=== PATIENT | female | born 1965 | race Caucasian/White ===

== ENCOUNTER → 2017-08-05 | Outpatient (CLI) | payer BC ==
--- NOTE | 2017-08-06 10:41 | MM ---
Reason for exam: screening (asymptomatic). Last mammogram was performed 2 years and 5 months ago. History: Patient had first child at age 29. Took hormonal contraceptives for 13 years. Physical Findings: A clinical breast exam by your physician is recommended on an annual basis and results should be correlated with mammographic findings. MG Screening Mammo w CAD Bilateral CC and MLO view(s) were taken. Prior study comparison: February 27, 2015, bilateral MG screening mammo w CAD. January 20, 2013, bilateral digital screening mammo w/CAD. The breast tissue is heterogeneously dense. This may lower the sensitivity of mammography. No significant changes when compared with prior studies. ASSESSMENT: Benign, BI-RAD 2 RECOMMENDATION: Routine screening mammogram of both breasts in 1 year.
== END | disposition home or self-care (01) ==
LOC: RADMAMWWP 16:06
PROVIDERS: ATTEND Internal Medicine
DX: Z12.31 Encounter for screening mammogram for malignant neoplasm of breast (principal)
CPT/HCPCS: 77067

== ENCOUNTER → 2021-02-26 | Outpatient (CLI) | payer BC ==
--- NOTE | 2021-02-26 15:26 | US ---
EXAMINATION TYPE: US carotid duplex BILAT DATE OF EXAM: 02/26/2021 COMPARISON: CT Brain CLINICAL HISTORY: R09.89 CAROTID BRUIT. Left carotid bruit and cardiac murmur per patient. EXAM MEASUREMENTS: RIGHT: Peak Systolic Velocity (PSV) cm/sec ----- Right CCA: 62.7 ----- Right ICA: 125.1 ----- Right ECA: 69.4 ICA/CCA ratio: 2.0 RIGHT: End Diastole cm/sec ----- Right CCA: 23.5 ----- Right ICA: 51.3 ----- Right ECA: 15.0 LEFT: Peak Systolic Velocity (PSV) cm/sec ----- Left CCA: 91.0 ----- Left ICA: 101.2 ----- Left ECA: 46.8 ICA/CCA ratio: 1.1 LEFT: End Diastole cm/sec ----- Left CCA: 39.2 ----- Left ICA: 36.5 ----- Left ECA: 12.7 VERTEBRALS (direction of flow): Right Vertebral: Antegrade Left Vertebral: Antegrade Rhythm: Normal Grayscale images show [id number] peripheral plaque at bilateral carotid bulb level. Slight incr eased peak systolic and end diastolic velocity in the right internal carotid artery. Slight abnormal ratio noted. IMPRESSION: Moderate atherosclerotic changes bilaterally. Hemodynamically significant stenosis just over 50% is felt present on the right. Further Investigation with CTA or MRA of the neck is advised t o better evaluate. Criteria for Assigning % of Stenosis / Diameter reduction (Estimation based on the indirect measurements of the internal carotid artery velocities (ICA PSV). 1. Normal (no stenosis)=ICA PSV < 125 cm/s: ratio < 2.0: ICA EDV<40 cm/s. 2. Less than 50% stenosis=ICA PSV < 125 cm/s: ratio < 2.0: ICA EDV<40 cm/s. 3. 50 to 69% stenosis=ICA PSV of 125 to 230 cm/s: ration 2.0 ? 4.0: ICA EDV 40-100 cm/s. 4. Greater than 70% stenosis to near occlusion= ICA PSV > 230 cm/s: ratio > 4.0: ICA EDV > 100 cm/s. 5. Near occlusion= ICA PSV velocities may be low or undetectable: variable ratio and ICA EDV. 6. Total occlusion=unable to detect flow.
--- NOTE | 2021-02-27 10:14 | ECHOF ---
Referral Reason:R01.1 MEASUREMENTS -------- HEIGHT: 170.2 cm WEIGHT: 73.5 kg BP: 169/92 RVIDd: 3.0 cm (< 3.3) IVSd: 1.1 cm (0.6 - 1.1) LVIDd: 4.2 cm (3.9 - 5.3) LVPWd: 1.2 cm (0.6 - 1.1) IVSs: 1.6 cm LVIDs: 2.8 cm LVPWs: 1.6 cm LA Diam: 3.0 cm (2.7 - 3.8) LAESV Index (A-L): 24.90 ml/m Ao Diam: 2.8 cm (2.0 - 3.7) AV Cusp: 1.4 cm (1.5 - 2.6) MV EXCURSION: 14.642 mm (> 18.000) MV EF SLOPE: 59 mm/s (70 - 150) EPSS: 0.1 cm MV E Weston: 1.25 m/s MV DecT: 313 ms MV A Weston: 1.50 m/s MV E/A Ratio: 0.83 AV maxP.91 mmHg AV meanP.01 mmHg RAP: 5.00 mmHg RVSP: 39.79 mmHg FINDINGS -------- Sinus rhythm. This was a technically adequate study. The left ventricular size is normal. There is borderline concentric left ventricular hypertrophy. Overall left ventricular systolic function is normal with, an EF between 60 - 65 %. The right ventricle is normal in size. Normal LA size by volume 22+/-6 ml/m2. The right atrium is normal in size. Interatrial and interventricular septum intact. There is moderate aortic valve sclerosis. There is severe aortic stenosis present. Peak/mean grad ient across the Aortic Valve is 88.91mmHg / 55.01mmHg. Can't exclude possible Bicuspid Aov. Mild mitral annular calcification present. There is trace mitral regurgitation. Mild tricuspid regurgitation present. There is mild pulmonary hypertension. The right ventricular systolic pressure, as measured by Doppler, is 39.79mmHg. There is no pulmonic regurgitation present. The aortic root size is normal. Normal inferior vena cava with normal inspiratory collapse consistent with estimated right atrial pre ssure of 5 mmHg. There is no pericardial effusion. CONCLUSIONS -------- 1. The left ventricular size is normal. 2. There is borderline concentric left ventricular hypertrophy. 3. Overall left ventricular systolic function is normal with, an EF between 60 - 65 %. 4. There is moderate aortic valve sclerosis. 5. There is severe aortic stenosis present. 6. Peak/mean gradient across the Aortic Valve is 88.91mmHg / 55.01mmHg. 7. Can't exclude possible Bicuspid Aov. 8. Mild mitral annular calcification present. 9. There is trace mitral regurgitation. 10. Mild tricuspid regurgitation present. 11. There is mild pulmonary hypertension. 12. The right ventricular systolic pressure, as measured by Doppler, is 39.79mmHg. 13. There is no pulmonic regurgitation present. 14. There is no pericardial effusion. CUSTOMER SERVICE CLERK: Johana Ramsay RDCS
== END | disposition home or self-care (01) ==
LOC: RADECHMAIN 13:42
PROVIDERS: ATTEND Family Medicine
DX: I08.3 Combined rheumatic disorders of mitral, aortic and tricuspid valves (principal); I65.23 Occlusion and stenosis of bilateral carotid arteries; I27.20 Pulmonary hypertension, unspecified
CPT/HCPCS: 93306; 93880

== ENCOUNTER 2021-03-05 13:00 | Emergency (ER) | payer BC ==
[2021-03-05 13:12] VITALS: TEMP 98.1
--- NOTE | 2021-03-05 13:38 | XR ---
EXAMINATION TYPE: XR chest 2V DATE OF EXAM: 03/05/2021 COMPARISON: Chest x-ray and CT July 01, 2012 HISTORY: History of cardiac stenosis with dysrhythmia TECHNIQUE: Frontal and lateral views of the chest are obtained. FINDINGS: There are chronic parenchymal changes bilaterally redemonstrated without suspicious focal air space opacity, pleural effusion, or pneumothorax seen. The cardiac silhouette size is stable and within normal limits with atherosclerotic change thoracic aorta. The osseous structures are intact . IMPRESSION: Chronic changes without acute pulmonary process.
[2021-03-05 13:52] LABS: Basophils # (A) 0.1 k/uL (0-0.2); Basophils % (A) 1 %; Eosinophils # (A) 0.1 k/uL (0-0.7); Eosinophils % (A) 2 %; HCT 40.8 % (34.0-46.0); HGB 13.4 gm/dL (11.4-16.0); Lymphocytes # (A) 2.9 k/uL (1.0-4.8); Lymphocytes % (A) 41 %; MCH 29.3 pg (25.0-35.0); MCHC 32.9 g/dL (31.0-37.0); MCV 89.1 fL (80.0-100.0); Mean Platelet Volume 9.3; Monocytes # (A) 0.3 k/uL (0-1.0); Monocytes % (A) 4 %; Neutrophils # (A) 3.5 k/uL (1.3-7.7); Neutrophils % (A) 50 %; Platelet Count 242 k/uL (150-450); RBC 4.58 m/uL (3.80-5.40); RDW 12.2 % (11.5-15.5)
[2021-03-05 13:56] LABS: Albumin 4.3 g/dL (3.5-5.0); Calcium 9.7 mg/dL (8.4-10.2); Magnesium 2.1 mg/dL (1.6-2.3); Potassium 3.4 mmol/L (3.5-5.1); Prothrombin Time 11.1 sec (9.0-12.0); Total Bilirubin 0.4 mg/dL (0.2-1.3); Total Protein 7.7 g/dL (6.3-8.2)
[2021-03-05 13:57] LABS: Partial Thromboplastin Time 23.5 sec (22.0-30.0)
--- NOTE | 2021-03-05 15:18 | ED ---
General Adult HPI - General Chief complaint: Arrhythmia/Palpitations Stated complaint: High HR Time Seen by Provider: 03/05/21 14:31 Source: patient, RN notes reviewed Mode of arrival: wheelchair Limitations: no limitations - History of Present Illness Initial comments: 55-year-old female presents to the emergency department for evaluation. States she has a sensation in her upper chest that she has difficulty describing but is causing her concern. States that has occurred 4 or 5 times and lasts for less than a minute. Has had some fluttering sensation in her chest as well. Patient states she was recently diagnosed with aortic stenosis and is scheduled to see the optical element coater tomorrow. Patient denies headache, dizziness, lightheadedness, chest pain, shortness of breath, difficulty breathing, abdominal pain, nausea, vomiting, or dysuria - Related Data Home Medications Medication Instructions Recorded Confirmed Aspirin 81 mg PO DAILY 03/05/21 03/05/21 Enalapril [Vasotec] 5 mg PO DAILY 03/05/21 03/05/21 Potassium Chloride [Potassium 10 meq PO DAILY 03/05/21 03/05/21 Chloride ER] hydroCHLOROthiazide 25 mg PO DAILY 03/05/21 03/05/21 Allergies Allergy/AdvReac Type Severity Reaction Status Date / Time No Known Allergies Allergy Verified 03/05/21 16:29 Review of Systems ROS Statement: Those systems with pertinent positive or pertinent negative responses have been documented in the HPI. ROS Other: All systems not noted in ROS Statement are negative. Past Medical History Past Medical History: Hypertension Additional Past Medical History / Comment(s): recently diagnosed with aortic stenosis, History of Any Multi-Drug Resistant Organisms: None Reported Past Surgical History: Section Past Psychological History: No Psychological Hx Reported Smoking Status: Former smoker Past Alcohol Use History: None Reported Past Drug Use History: None Reported General Exam Limitations: no limitations (This is a well-developed, well-nourished female in no acute distress. Initial temperature 98.1, pulse 104, respirations 20, blood pressure 178/82, and pulse ox 98% on room air.) General appearance: alert, in no apparent distress Eye exam: Present: normal appearance, PERRL, EOMI. Absent: scleral icterus, conjunctival injection, periorbital swelling ENT exam: Present: normal exam, normal oropharynx, mucous membranes moist Neck exam: Present: normal inspection Respiratory exam: Present: normal lung sounds bilaterally. Absent: respiratory distress, wheezes, rales, rhonchi, stridor Cardiovascular Exam: Present: regular rate, normal rhythm, normal heart sounds, systolic murmur. Absent: diastolic murmur, rubs, gallop, clicks GI/Abdominal exam: Present: soft, normal bowel sounds. Absent: distended, tenderness, guarding, rebound, rigid Neurological exam: Present: alert, oriented X3, CN II-XII intact Psychiatric exam: Present: normal affect, normal mood Skin exam: Present: warm, dry, intact, normal color. Absent: rash Course Vital Signs 03/05/21 03/05/21 03/05/21 13:09 14:36 20:29 Temperature 98.1 F Pulse Rate 104 H 89 Pulse Rate [ 91 Cigar Head Stringer ] Respiratory 20 18 Rate Blood Pressure 178/82 128/70 O2 Sat by Pulse 98 98 Oximetry Medical Decision Making - Medical Decision Making 55-year-old female presents to the emergency department for evaluation in a nonspecific sensation in the upper portion of her chest. Patient states she has had 4-5 episodes of this difficult to describe sensation that is somewhat simila r to palpitations, though not fluttering. Episodes are not accompanied by any additional symptoms such as dizziness or lightheadedness, diaphoresis, or nausea vomiting. Patient is not experiencing any chest pain or tightness. Upon exam, patient is well-appearing with a supportive spouse at bedside. States she does feel anxious about her new diagnosis. pvc monitor shows normal sinus rhythm . Blood pressure significantly improved with rest. EKG shows normal sinus rhythm with evidence of left ventricular hypertrophy. Patient states she is scheduled to see the optical element coater tomorrow. Laboratory studies were obtained. Initial troponin was less than 0.012, repeat 0.015. Chest x-ray shows no acute process. Patient's care was discussed with my attending Dr. Newman. Findings were also discussed with the patient and spouse. Presented with the option of pursuing admission for continued cardiac monitoring, or discharge home with strict return parameters. Patient preferred discharge home as she is scheduled to see the optical element coater tomorrow. Return parameters were discussed in detail. Patient verbalizes understanding and agrees with this plan. - Lab Data Result diagrams: 03/05/21 13:21 03/05/21 13:21 Lab Results 03/05/21 03/05/2103/05/21 Range/Units 13:21 13:21 13:21 WBC 7.0 (3.8-10.6) k/uL RBC 4.58 (3.80-5.40) m/uL Hgb 13.4 (11.4-16.0) gm/dL Hct 40.8 (34.0-46.0) % MCV 89.1 (80.0-100.0) fL MCH 29.3 (25.0-35.0) pg MCHC 32.9 (31.0-37.0) g/dL RDW 12.2 (11.5-15.5) % Plt Count 242 (150-450) k/uL MPV 9.3 Neutrophils % 50 % Lymphocytes % 41 % Monocytes % 4 % Eosinophils % 2 % Basophils % 1 % Neutrophils # 3.5 (1.3-7.7) k/uL Lymphocytes # 2.9 (1.0-4.8) k/uL Monocytes # 0.3 (0-1.0) k/uL Eosinophils # 0.1 (0-0.7) k/uL Basophils # 0.1 (0-0.2) k/uL PT 11.1 (9.0-12.0) sec INR 1.0 (<1.2) APTT 23.5 (22.0-30.0) sec Sodium 136 L (137-145) mmol/L Potassium 3.4 L (3.5-5.1) mmol/L Chloride 98 (98-107) mmol/L Carbon Dioxide 27 (22-30) mmol/L Anion Gap 11 mmol/L BUN 16 (7-17) mg/dL Creatinine 0.86 (0.52-1.04) mg/dL Est GFR (CKD-EPI)AfAm 87 (>60 ml/min/1.73 sqM) Est GFR (CKD-EPI)NonAf 76 (>60 ml/min/1.73 sqM) Glucose 175 H (74-99) mg/dL Calcium 9.7 (8.4-10.2) mg/dL Magnesium 2.1 (1.6-2.3) mg/dL Total Bilirubin 0.4 (0.2-1.3) mg/dL AST 21 (14-36) U/L ALT 24 (4-34) U/L Alkaline Phosphatase 84 (38-126) U/L Troponin I (0.000-0.034) ng/mL Total Protein 7.7 (6.3-8.2) g/dL Albumin 4.3 (3.5-5.0) g/dL 03/05/21 03/05/21 Range/Units 13:21 17:58 WBC (3.8-10.6) k/uL RBC (3.80-5.40) m/uL Hgb (11.4-16.0) gm/dL Hct (34.0-46.0) % MCV (80.0-100.0) fL MCH (25.0-35.0) pg MCHC (31.0-37.0) g/dL RDW (11.5-15.5) % Plt Count (150-450) k/uL MPV Neutrophils % % Lymphocytes % % Monocytes % % Eosinophils % % Basophils % % Neutrophils # (1.3-7.7) k/uL Lymphocytes # (1.0-4.8) k/uL Monocytes # (0-1.0) k/uL Eosinophils # (0-0.7) k/uL Basophils # (0-0.2) k/uL PT (9.0-12.0) sec INR (<1.2) APTT (22.0-30.0) sec Sodium (137-145) mmol/L Potassium (3.5-5.1) mmol/L Chloride (98-107) mmol/L Carbon Dioxide (22-30) mmol/L Anion Gap mmol/L BUN (7-17) mg/dL Creatinine (0.52-1.04) mg/dL Est GFR (CKD-EPI)AfAm (>60 ml/min/1.73 sqM) Est GFR (CKD-EPI)NonAf (>60 ml/min/1.73 sqM) Glucose (74-99) mg/dL Calcium (8.4-10.2) mg/dL Magnesium (1.6-2.3) mg/dL Total Bilirubin (0.2-1.3) mg/dL AST (14-36) U/L ALT (4-34) U/L Alkaline Phosphatase (38-126) U/L Troponin I <0.012 0.015 (0.000-0.034) ng/mL Total Protein (6.3-8.2) g/dL Albumin (3.5-5.0) g/dL - EKG Data EKG shows normal: sinus rhythm Rate: normal EKG Comments: EKG was obtained at 1313 and shows normal sinus rhythm. Ventricular rate 94, OH interval 120, QRS duration 90, QT/QTC 362/452. - Radiology Data Radiology results: report reviewed, image reviewed Two-view chest x-ray was obtained. Report was reviewed in its entirety. Impression per Dr. Johnson shows chronic changes without acute pulmonary process. Disposition Clinical Impression: Palpitations Disposition: HOME SELF-CARE Condition: Stable Instructions (If sedation given, give patient instructions): Heart Palpitations (ED) Additional Instructions: Follow-up with her optical element coater as scheduled tomorrow. If you develop any chest pain, tightness, discomfort, or additional concerning symptoms, please return to the emergency department. Is patient prescribed a controlled substance at d/c from ED?: No Referrals: Theresa Stokes MD [Primary Care Provider] - 1-2 days Time of Disposition: 20:07
[2021-03-05 20:29] VITALS: BP 128/70; PULSE 89; RESP 18
== END 2021-03-05 20:29 | disposition home or self-care (01) ==
LOC: EC 13:00
DX: R00.2 Palpitations (principal); I10 Essential (primary) hypertension; Z87.891 Personal history of nicotine dependence; Z79.82 Long term (current) use of aspirin; Z79.899 Other long term (current) drug therapy
CPT/HCPCS: 36415; 71046; 80053; 83735; 84484; 85025; 85610; 85730; 93005; 99285

== ENCOUNTER → 2021-03-20 | Outpatient (CLI) | payer BC ==
--- NOTE | 2021-03-20 20:37 | CT ---
EXAMINATION TYPE: CT angio neck DATE OF EXAM: 03/20/2021 HISTORY: Occlusion and stenosis, abnormal ultrasound. COMPARISON: Carotid Doppler duplex 02/26/2021 CT DLP: 292.8 mGycm. Automated Exposure Control for Dose Reduction was Utilized. TECHNIQUE: CTA scan of the neck is performed with IV Contrast, patient injected with 65ml mL of Isov ue 370, axial images are obtained, coronal and sagittal reformatted images are reviewed. 3D reconstru cted images are created on an independent workstation and reviewed. FINDINGS: Carotid/Vascular Structures: Only mild atheromatous changes are present at the carotid bifurcations. There is no evidence hemodynamic significant stenosis. There is 4 super aortic branch vessels. The innominate, left and right vertebral arteries, left and r ight common carotid arteries, left and right subclavian arteries are patent. Right vertebral artery i s dominant. Internal and external carotid arteries are patent. Other: Lung apices are normal. No evident adenopathy. IMPRESSION: No hemodynamic significant stenosis of the proximal internal carotid arteries is present . NASCET criteria was used in interpretation of this exam?
== END | disposition home or self-care (01) ==
LOC: RADCTMAIN 16:24
PROVIDERS: ATTEND Internal Medicine Interventional Cardiology
DX: I65.29 Occlusion and stenosis of unspecified carotid artery (principal)
CPT/HCPCS: 70498; Q9967

== ENCOUNTER 2021-04-25 07:58 | Day surgery (SDC) | payer BC ==
[2021-04-24 09:39] VITALS: BMI 27.3
[2021-04-25] MEDS ORDERED: SODIUM CHLORIDE 0.9% 500 ML 500 ML IV ONE (08:13)
[2021-04-25 08:22] VITALS: TEMP 97.8
[2021-04-25] MEDS ORDERED: fentaNYL (PF) 50 MCG/ML 2 ML AMP ONE (08:42)
[2021-04-25] MEDS ORDERED: BENZOCAINE SPRAY 1 CAN TOPICAL ONE (08:53)
[2021-04-25] MEDS ORDERED: MIDAZOLAM 2 MG/2 ML VIAL IV ONE (09:11)
[2021-04-25] MEDS: MIDAZOLAM 2 MG/2 ML VIAL IV ONE ×2 (09:11→09:14)
[2021-04-25] MEDS ORDERED: fentaNYL (PF) 50 MCG/ML 2 ML AMP IV ONE (09:11)
--- NOTE | 2021-04-25 10:07 | P.PCN ---
Date of Procedure: 04/25/21 Operative Findings: TRANSESOPHAGEAL ECHOCARDIOGRAM METALIZING MACHINE OPERATOR: NATHALIE CORNELL MD, RPVI INDICATION: Aortic stenosis SEDATION: Conscious sedation 12 minuteswith sedation length of COMPLICATION: None PROCEDURE DESCRIPTION: After obtaining an informed consent, the patient was brought to transesophageal echocardiogram room. Pulse oximetry and heart monitors were attached to the patient. The patient throat was sprayed using lidocaine. The patient was turned into left lateral position. After that a bite guard was placed. After an appropriate conscious sedation was initiated, the transesophageal echocardiogram was advanced through a bite guard into the mid esophagus. A 2-D echocardiogram images, color Doppler images, continuous wave images, pulse-wave images, of various cardiac structure were performed. After that the transesophageal echocardiogram probe was advanced into the stomach and fixed to obtain transgastric view was. The probe was brought into the mid esophagus. Inter-atrial septum was interrogated using 2D images, color Doppler images, and then contrast study. After that transesophageal echocardiogram was withdrawn out and upon withdrawing the descending thoracic aorta all the way up to the arch was evaluated. FINDING: The left ventricular dimension and systolic function appeared to be within normal limits. The ejection fraction appears to be in the range of 50-55%. The right ventricle appeared to be of normal size and function as well. The left atrium and right atrium appeared to be within normal limits. The left atrial appendage appeared to be within normal limits without any evidence of thrombus. The interatrial septum appeared to be intact. The aortic valve appeared to be bicuspid valve with fusion of the right and left coronary cusps and evidence off severe aortic stenosis with a mean gradient of 38 mmHg and peak gradient of 82 mmHg and velocity of 4.3 m/s. There was mild aortic insufficiency identified. The mitral valve seems to be mildly thickened with mild to moderate regurgitation. The aortic root appeared to also dilated. Normal tricuspid valve and pulmonic valve seen. CONCLUSION: 1. normal left ventricular dimension and systolic function 2. normal right ventricular dimension and systolic function 3. normal left atrial appendage and intact interatrial septum 4. bicuspid aortic valve with fusion of the right and left coronary cusps and evidence of severe aortic stenosis and mild aortic insufficiency 5. dilated aortic root 6. mild to moderate mitral regurgitation
[2021-04-25 12:04] VITALS: RESP 16
[2021-04-25 12:06] VITALS: BP 132/82; PULSE 68
== END 2021-04-25 10:30 | disposition home or self-care (01) ==
LOC: CATHCVL 07:58
PROVIDERS: ATTEND Internal Medicine Interventional Cardiology
DX: I35.0 Nonrheumatic aortic (valve) stenosis (principal); Z20.822 Contact with and (suspected) exposure to COVID-19
CPT/HCPCS: 93312; 93320; 93325; 87635; J2250; J3010

== ENCOUNTER 2022-04-03 10:22 | Emergency (ER) | payer BC ==
[2022-04-03 11:08] LABS: Basophils # (A) 0.1 k/uL (0-0.2); Basophils % (A) 1 %; Eosinophils # (A) 0.1 k/uL (0-0.7); Eosinophils % (A) 1 %; HCT 42.8 % (34.0-46.0); HGB 14.1 gm/dL (11.4-16.0); Lymphocytes # (A) 1.6 k/uL (1.0-4.8); Lymphocytes % (A) 21 %; MCH 28.8 pg (25.0-35.0); MCV 87.2 fL (80.0-100.0); Mean Platelet Volume 9.9; Monocytes # (A) 0.3 k/uL (0-1.0); Monocytes % (A) 4 %; Neutrophils # (A) 5.1 k/uL (1.3-7.7); Neutrophils % (A) 71 %; Platelet Count 230 k/uL (150-450); RBC 4.91 m/uL (3.80-5.40); RDW 12.4 % (11.5-15.5); WBC 7.3 k/uL (3.8-10.6)
[2022-04-03 11:20] VITALS: RESP 16
[2022-04-03 11:20] LABS: Prothrombin Time 10.5 sec (9.0-12.0)
[2022-04-03] MEDS ORDERED: LORazepam 2 MG/ML INJ IV STA (11:24)
--- NOTE | 2022-04-03 11:26 | XR ---
EXAMINATION TYPE: XR chest 2V DATE OF EXAM: 04/03/2022 11:09 AM COMPARISON: Chest radiographs from 03/05/2021. TECHNIQUE: XR chest 2V Frontal and lateral views of the chest. CLINICAL INDICATION:Female, 56 years old with history of Chest Pain; FINDINGS: Lungs/Pleura: There is no evidence of pleural effusion, focal consolidation, or pneumothorax. Chroni c parenchymal changes bilaterally. Pulmonary vascularity: Unremarkable. Heart/mediastinum: Cardiomediastinal silhouette is unremarkable. Atherosclerotic calcifications are seen in the aorta. Musculoskeletal: No acute osseous pathology. IMPRESSION: Chronic changes without acute process.
--- NOTE | 2022-04-03 11:27 | ED ---
General Adult HPI - General Chief complaint: Chest Pain Stated complaint: chest tightness Time Seen by Provider: 04/03/22 11:05 Source: patient, RN notes reviewed, old records reviewed Mode of arrival: ambulatory Limitations: no limitations - History of Present Illness Initial comments: This is a 56-year-old female presents emergency department with past medical history significant for a bicuspid valve that needs replacing. Patient states today at work she was just sitting there and she felt a weird sensation in her chest like her heart stopped and then she almost passed out. Patient states currently she feels fine. Patient denies any actual chest pain. Patient denies any difficulty breathing shortness of breath. Patient again denies any chest pain to me she states is a weird sensation in her chest like is going to stop but there is actually no pain. Patient states currently she has no symptoms. Patient denies any recent fever chills or cough. Patient states she might be a little dehydrated because lately spell constipated. Patient denies any headache patient denies any numbness or focal weakness. - Related Data Home Medications Medication Instructions Recorded Confirmed Enalapril [Vasotec] 5 mg PO DAILY 03/05/21 04/03/22 Cholecalciferol [Vitamin D3 (25 50 mcg PO DAILY 04/03/22 04/03/22 Mcg = 1000 Iu)] Triamterene/Hydrochlorothiazid 1 tab PO DAILY 04/03/22 04/03/22 [Triamterene-Hctz 37.5-25 mg Tb] Allergies Allergy/AdvReac Type Severity Reaction Status Date / Time No Known Allergies Allergy Verified 04/03/22 12:52 Review of Systems ROS Statement: Those systems with pertinent positive or pertinent negative responses have been documented in the HPI. ROS Other: All systems not noted in ROS Statement are negative. Past Medical History Past Medical History: Hypertension Additional Past Medical History / Comment(s): recently diagnosed with aortic stenosis," OCCASSIONAL FLUTTER"" History of Any Multi-Drug Resistant Organisms: None Reported Past Surgical History: Section Additional Past Surgical History / Comment(s): IVF- WITH ANESTHESIA , COLONOSCOPY Past Anesthesia/Blood Transfusion Reactions: Previous Problems w/ Anesthesia Additional Past Anesthesia/Blood Transfusion Reaction / Comment(s): TOOK LONGER FOR FATHER TO WAKE UP FROM ANESTHESIA Past Psychological History: Anxiety Smoking Status: Former smoker Past Alcohol Use History: Occasional Past Drug Use History: Marijuana - Past Family History Mother History Unknown: Yes General Exam - General Exam Comments Initial Comments: GENERAL: Patient is well-developed and well-nourished. Patient is nontoxic and well- hydrated and is in mild distress. ENT: Neck is soft and supple. No significant lymphadenopathy is noted. Oropharynx is clear. Moist mucous membranes. Neck has full range of motion without eliciting any pain. EYES: The sclera were anicteric and conjunctiva were pink and moist. Extraocular movements were intact and pupils were equal round and reactive to light. Eyelids were unremarkable. PULMONARY: Unlabored respirations. Good breath sounds bilaterally. No audible rales rhonchi or wheezing was noted. CARDIOVASCULAR: Patient is tachycardic at about 100 beats a minute. Patient has a significant systolic murmur 3 out of 6 ABDOMEN: Soft and nontender with normal bowel sounds. SKIN: Skin is clear with no lesions or rashes and otherwise unremarkable. NEUROLOGIC: Patient is alert and oriented x3. Cranial nerves II through XII are grossly intact. Motor and sensory are also intact. Normal speech, volume and content. Symmetrical smile. MUSCULOSKELETAL: Normal extremities with adequate strength and full range of motion. No lower extremity swelling or edema. No calf tenderness. LYMPHATICS: No significant lymphadenopathy is noted PSYCHIATRIC: Normal psychiatric evaluation. Limitations: no limitations Course Vital Signs 04/03/22 04/03/22 04/03/22 10:30 11:18 12:00 Temperature 98 F Pulse Rate 96 87 80 Respiratory 18 16 16 Rate Blood Pressure 129/80 161/96 131/82 O2 Sat by Pulse 100 97 98 Oximetry 04/03/22 04/03/22 13:00 16:19 Temperature 96.8 F L Pulse Rate 78 85 Respiratory 16 Rate Blood Pressure 126/81 135/81 O2 Sat by Pulse 98 98 Oximetry Medical Decision Making - Medical Decision Making EKG shows sinus rhythm at 83 bpm NJ interval 140 QRS is 86 QT interval 352 QTC is 392. Patient's EKG shows some slight ST segment depression V4 through V6 and inferior leads. Was pt. sent in by a medical professional or institution (, PA, PILOT PLANT OPERATOR, urgent care, hospital, or custodial...) When possible be specific @ -No Did you speak to anyone other than the patient for history (EMS, parent, family, police, friend...)? What history was obtained from this source @ -No Did you review nursing and triage notes (agree or disagree)? Why? @ -I reviewed and agree with nursing and triage notes Were old charts reviewed (outside hosp., previous admission, EMS record, old EKG, old radiological studies, urgent care reports/EKG's, custodial records)? Report findings @ -No old charts were reviewed Differential Diagnosis (chest pain, altered mental status, abdominal pain women, abdominal pain men, vaginal bleeding, weakness, fever, dyspnea, syncope, headache, dizziness, GI bleed, back pain, seizure, CVA, palpatations, mental health)? @ -Differential Syncope: Valvular disease, hypertrophic cardiomyopathy, pulmonary embolism, tamponade, tachycardia, bradycardia, KS, hypovolemia, hemorrhage, dissection, anemia, intracranial hemorrhage, seizure, hypoglycemia, carbon monoxide poisoning, this is not meant to be an all-inclusive list. EKG interpreted by me (3pts min.). @ -As above X-rays interpreted by me (1pt min.). @ -Chest x-ray is interpreted by me. No acute abnormality. CT interpreted by me (1pt min.). @ -CT of the chest was interpreted by me. First computed tomography scan she had too much motion artifact so it was repeated and it showed no acute pulmonary was no infiltrates and no aortic abnormalities. U/S interpreted by me (1pt. min.). @ -None done What testing was considered but not performed or refused? (CT, X-rays, U/S, labs)? Why? @ -None What meds were considered but not given or refused? Why? @ -None Did you discuss the management of the patient with other professionals (professionals i.e. , PA, PILOT PLANT OPERATOR, lab, RT, psych nurse, clinical social worker, quality cloth tester, teacher, special forces warrant officer, case maker)? Give summary @ -I discussed the management of this patient with staff he agreed that the patient did not have any signs of aortic dissection or pulmonary embolism the p atient could go home and follow-up with the cardiovascular surgeon for the bicuspid aortic valve that has some stenosis Was smoking cessation discussed for >3mins.? @ -No Was critical care preformed (if so, how long)? @ -No Were there social determinants of health that impacted care today? How? (Homelessness, low income, unemployed, alcoholism, drug addiction, transportation, low edu. Level, literacy, decrease access to med. care, usp, rehab)? @ -No Was there de-escalation of care discussed even if they declined (Discuss DNR or withdrawal of care, Hospice)? DNR status @ -No What co-morbidities impacted this encounter? (DM, HTN, Smoking, COPD, CAD, Cancer, CVA, ARF, Chemo, Hep., AIDS, mental health diagnosis, sleep apnea, morbid obesity)? @ -aortic stenosis and a bicuspid aortic valve this is potentially causing poor outflow heart causing her syncopal episodes which is why she is here today Was patient admitted / discharged? Hospital course, mention meds given and route, prescriptions, significant lab abnormalities, going to OR and other pertinent info. @ -Patient will be discharged home to follow-up with cardiovascular surgeon who sure he has appointment with. Patient is going to return hospital to us any worsening symptoms such as difficulty breathing chest pain or more syncopal episodes. Patient will keep hydrated as well Undiagnosed new problem with uncertain prognosis? @ -No Drug Therapy requiring intensive monitoring for toxicity (Heparin, Nitro, Insulin, Cardizem)? @ -No Were any procedures done? @ -No Diagnosis/symptom? @ -Near syncope Acute, or Chronic, or Acute on Chronic? @ -Acute on chronic Uncomplicated (without systemic symptoms) or Complicated (systemic symptoms)? @ -Complicated Side effects of treatment? @ -No Exacerbation, Progression, or Severe Exacerbation? @ -Exacerbation Poses a threat to life or bodily function? How? (Chest pain, [place], KS, pneumonia, PE, COPD, DKA, ARF, appy, cholecystitis, CVA, Diverticulitis, Homicidal, Suicidal, threat to staff... and all critical care pts) @ -No Diagnosis/symptom? @ -Stenosis of the aortic valve Acute, or Chronic, or Acute on Chronic? @ -Acute Uncomplicated (without systemic symptoms) or Complicated (systemic symptoms)? @ -Complicated Side effects of treatment? @ -none Exacerbation, Progression, or Severe Exacerbation] @ -no Poses a threat to life or bodily function? @ -no - Lab Data Result diagrams: 04/03/22 10:38 04/03/22 10:38 Lab Results 04/03/22 04/03/22 04/03/22 Range/Units 10:38 10:38 10:38 WBC 7.3 (3.8-10.6) k/uL RBC 4.91 (3.80-5.40) m/uL Hgb 14.1 (11.4-16.0) gm/dL Hct 42.8 (34.0-46.0) % MCV 87.2 (80.0-100.0) fL MCH 28.8 (25.0-35.0) pg MCHC 33.0 (31.0-37.0) g/dL RDW 12.4 (11.5-15.5) % Plt Count 230 (150-450) k/uL MPV 9.9 Neutrophils % 71 % Lymphocytes % 21 % Monocytes % 4 % Eosinophils % 1 % Basophils % 1 % Neutrophils # 5.1 (1.3-7.7) k/uL Lymphocytes # 1.6 (1.0-4.8) k/uL Monocytes # 0.3 (0-1.0) k/uL Eosinophils # 0.1 (0-0.7) k/uL Basophils # 0.1 (0-0.2) k/uL PT 10.5 (9.0-12.0) sec INR 1.0 (<1.2) APTT 24.0 (22.0-30.0) sec D-Dimer (<0.60) mg/L FEU Sodium 140 (137-145) mmol/L Potassium 3.5 (3.5-5.1) mmol/L Chloride 103 (98-107) mmol/L Carbon Dioxide 26 (22-30) mmol/L Anion Gap 11 mmol/L BUN 15 (7-17) mg/dL Creatinine 0.74 (0.52-1.04) mg/dL Est GFR (CKD-EPI)AfAm >90 (>60 ml/min/1.73 sqM) Est GFR (CKD-EPI)NonAf >90 (>60 ml/min/1.73 sqM) Glucose 125 H (74-99) mg/dL Calcium 9.9 (8.4-10.2) mg/dL Magnesium 2.0 (1.6-2.3) mg/dL Total Bilirubin 0.6 (0.2-1.3) mg/dL AST 32 (14-36) U/L ALT 44 H (4-34) U/L Alkaline Phosphatase 89 (38-126) U/L Troponin I (0.000-0.034) ng/mL Total Protein 8.1 (6.3-8.2) g/dL Albumin 4.7 (3.5-5.0) g/dL 04/03/22 04/03/22 Range/Units 10:38 10:38 WBC (3.8-10.6) k/uL RBC (3.80-5.40) m/uL Hgb (11.4-16.0) gm/dL Hct (34.0-46.0) % MCV (80.0-100.0) fL MCH (25.0-35.0) pg MCHC (31.0-37.0) g/dL RDW (11.5-15.5) % Plt Count (150-450) k/uL MPV Neutrophils % % Lymphocytes % % Monocytes % % Eosinophils % % Basophils % % Neutrophils # (1.3-7.7) k/uL Lymphocytes # (1.0-4.8) k/uL Monocytes # (0-1.0) k/uL Eosinophils # (0-0.7) k/uL Basophils # (0-0.2) k/uL PT (9.0-12.0) sec INR (<1.2) APTT (22.0-30.0) sec D-Dimer 5.33 H (<0.60) mg/L FEU Sodium (137-145) mmol/L Potassium (3.5-5.1) mmol/L Chloride (98-107) mmol/L Carbon Dioxide (22-30) mmol/L Anion Gap mmol/L BUN (7-17) mg/dL Creatinine (0.52-1.04) mg/dL Est GFR (CKD-EPI)AfAm (>60 ml/min/1.73 sqM) Est GFR (CKD-EPI)NonAf (>60 ml/min/1.73 sqM) Glucose (74-99) mg/dL Calcium (8.4-10.2) mg/dL Magnesium (1.6-2.3) mg/dL Total Bilirubin (0.2-1.3) mg/dL AST (14-36) U/L ALT (4-34) U/L Alkaline Phosphatase (38-126) U/L Troponin I <0.012 (0.000-0.034) ng/mL Total Protein (6.3-8.2) g/dL Albumin (3.5-5.0) g/dL Disposition Clinical Impression: Near syncope, Aortic valve stenosis Disposition: HOME SELF-CARE Condition: Good Instructions (If sedation given, give patient instructions): Syncope (ED) Additional Instructions: Patient should follow-up with cardiothoracic surgeon. Patient should return to emergency department chest pain difficulty breathing or syncopal episode Is patient prescribed a controlled substance at d/c from ED?: No Referrals: Amanda Calzada MD [Primary Care Provider] - 1-2 days Time of Disposition: 15:00
[2022-04-03 11:29] LABS: ALT 44 U/L (4-34); AST 32 U/L (14-36); African American GFR (CKD) >90 (>60 ml/min/1.73 sqM); Albumin 4.7 g/dL (3.5-5.0); Alkaline Phosphatase 89 U/L (38-126); Anion Gap 11 mmol/L; Blood Urea Nitrogen 15 mg/dL (7-17); Calcium 9.9 mg/dL (8.4-10.2); Carbon Dioxide 26 mmol/L (22-30); Chloride 103 mmol/L (98-107); Glucose 125 mg/dL (74-99); Non-African American GFR(CKD) >90 (>60 ml/min/1.73 sqM); Potassium 3.5 mmol/L (3.5-5.1); Sodium 140 mmol/L (137-145); Total Bilirubin 0.6 mg/dL (0.2-1.3); Total Protein 8.1 g/dL (6.3-8.2)
[2022-04-03] MEDS ORDERED: SODIUM CHLORIDE 0.9% 1,000 ML IV ONE ×2 (11:37→14:05)
--- NOTE | 2022-04-03 13:32 | CT ---
EXAMINATION TYPE: CT chest angio for PE DATE OF EXAM: 04/03/2022 COMPARISON: Radiograph same day, also, CTA 03/20/2021 HISTORY: 56-year-old female shortness of breath and elevated d-dimer TECHNIQUE: Contiguous axial scanning of the chest performed with IV Contrast, patient injected with 6 0 mL of Isovue 370. Coronal/sagittal MIP reconstructions performed. CT DLP: 308.7 mGycm Automated exposure control for dose reduction was used. FINDINGS: Heart normal size without pericardial effusion. No reflux of contrast into the hepatic veins. Prominent aortic valvular calcifications are present. There is borderline ectasia of the ascending ao rta 3.5 cm there is mild atherosclerotic arch calcifications. Aberrant direct takeoff of the left luis miguel tebral artery directly from the aortic arch. Small right hilar lymph nodes measuring up to 8 mm. No thoracic lymphadenopathy by CT size criteria. Satisfactory opacification the pulmonary arterial system. However, there is breathing motion artifact limiting evaluation. No large central or lobar branch pulmonary embolus. Unable to exclude filling d efects within segmental and subsegmental branches of the basilar left lower lobe, for example, axial image 96 and 109. There is mild diffuse bronchial wall thickening. Mild biapical pleural parenchymal scarring with mild scattered paraseptal emphysema. There is some strandy atelectasis at the basilar medial right middle lobe and also inferior lingula. No consolidation or pleural effusion. There is a small hernia. Mild left-sided colonic diverticulosis. Bones: Mild degenerative disc disease midthoracic spine. Nonspecific sclerotic focus right posterior T2 vertebral body. This is unchanged from 03/20/2021 suggesting a benign etiology, likely bone islan d. Small cervical ribs incidentally noted. IMPRESSION: 1. BREATHING MOTION ARTIFACT LIMITING THE EVALUATION. EXAM EQUIVOCAL FOR A COUPLE SEGMENTAL/SUBSEGMEN MARGARET BRANCH EMBOLI TO THE BASILAR LEFT LOWER LOBE (AXIAL IMAGE 96 AND 109). FINDINGS MAY EASILY BE DUE TO MOTION ARTIFACT. DEPENDING ON CLINICAL SUSPICION, CONSIDER EITHER TREATING VERSUS RE-BOLUSING. NO LARGE CENTRAL OR LOBAR BRANCH EMBOLUS IS SEEN. 2. COPD WITH MILD EMPHYSEMA. NO ACUTE PULMONARY PROCESS SEEN. 3. SMALL HIATAL HERNIA.
--- NOTE | 2022-04-03 14:37 | CT ---
EXAMINATION TYPE: CT angio chest CT DLP: 282.1 mGycm, Automated exposure control for dose reduction was used. DATE OF EXAM: 04/03/2022 2:21 PM COMPARISON: CTA chest of the same date. CLINICAL INDICATION:Female, 56 years old with history of elevate d-dimer; pe TECHNIQUE/CONTRAST: CTA scan of the thorax is performed with IV Contrast, patient injected with 60 mL of Isovue 370, pulm onary embolism protocol. MIP images are created and reviewed. FINDINGS: Pulmonary Artery: There is some streak artifact involving the left lower lobe microvascular. There is no definitive evidence for a filling defect within the pulmonary vasculature to suggest acute pulmon anh embolism. The pulmonary artery is of normal size. Lungs/Pleura: No pneumothorax or pleural effusion. Mild biapical pleural parenchymal scarring with mi ld scattered paraseptal emphysematous changes. Stranding atelectasis at the bases and medial right mi ddle lobe and also inferior lingula. No consolidation. Airway: Large airways are patent. Heart: Heart is within normal limits for size.. No pericardial effusion. Prominent aortic valvular ca lcifications. Aberrant direct takeoff of the left vertebral artery from the aortic arch. Mild vascula r calcification of the aorta. Vasculature: No evidence of aortic aneurysm. Mediastinum: No gross evidence of adenopathy. Musculoskeletal: No acute osseous abnormalities. Mild degenerative disc disease of the midthoracic sp ine. Nonspecific sclerotic focus in the right posterior T8 to vertebral body which is unchanged sugge sting benign etiology like a bone island. Small cervical ribs incidentally noted. Soft Tissues: Unremarkable. Lower neck: No significant findings. Upper Abdomen: Small hiatal hernia. Mild left-sided colonic diverticulosis. IMPRESSION: 1. No definitive evidence of pulmonary embolism. 2. COPD with mild emphysema.
[2022-04-03 16:22] VITALS: BP 135/81; PULSE 85; TEMP 96.8
== END 2022-04-03 16:24 | disposition home or self-care (01) ==
LOC: EC 10:22
DX: R55 Syncope and collapse (principal); I35.0 Nonrheumatic aortic (valve) stenosis; I10 Essential (primary) hypertension; F41.9 Anxiety disorder, unspecified; Z87.891 Personal history of nicotine dependence; F12.90 Cannabis use, unspecified, uncomplicated; Z79.899 Other long term (current) drug therapy
CPT/HCPCS: 36415; 93005; 85379; 80053; 83735; 84484; 85025; 85610; 85730; 71046; 71275; 99285; 96360; 96361 ×3; Q9967

== ENCOUNTER → 2023-04-24 | Outpatient (CLI) | payer BC ==
--- NOTE | 2023-04-24 16:17 | MM ---
Reason for Exam: Screening (asymptomatic). Last mammogram was performed 5 year(s) and 8 month(s) ago. Patient History: Menarche at age 11. First Full-Term at age 29. Late child-bearing (after 30). Postmenopausal. Patient has history of breast feeding. Patient used Hormonal Contraceptives for 13 years. Risk Values: Regine 5 year model risk: 1.9%. NCI Lifetime model risk: 10.2%. Prior Study Comparison: 12/17/2007 Bilateral Screening Mammogram, [facility]. 01/20/2013 Bilateral Screening Mammogram, [facility]. 02/27/2015 Bilateral Screening Mammogram, [facility]. 08/05/2017 Bilateral Screening Mammogram, [facility]. Tissue Density: The breast tissue is almost entirely fat. Findings: Analyzed By CAD. There is no suspicious group of microcalcifications or new suspicious mass. Benign-appearing calcifications right breast. Overall Assessment: Negative, BI-RAD 1 Management: Screening Mammogram of both breasts in [address] [facility] will attempt to contact patient to return for supplemental views and ultrasound if indicated. Patient should continue monthly self-breast exams. A clinical breast exam by your physician is recommended on an annual basis. This exam should not preclude additional follow-up of suspicious palpable abnormalities. Note on Regine scores and lifetime risk: 1. A Regine score greater than 3% is considered moderate risk. If this is the case, consider specialist referral to assess eligibility for a risk reducing agent. 2. If overall lifetime risk for the development of breast cancer is 20% or higher, the patient may qualify for future screening with alternating mammogram and breast MRI. Electronically signed and approved by: Carlos Correa DO
--- NOTE | 2023-04-24 18:28 | BD ---
EXAMINATION TYPE: Axial Bone Density DATE OF EXAM: 04/24/2023 CLINICAL HISTORY: 57 years old Female. ICD-10 CODE: N95.1 MENOPAUSAL AND FEMALE C Height: 66.5 in Weight: 182 lbs EXAM MEASUREMENTS: Bone mineral densitometry was performed using the [employer] System. Bone mineral density as measured about the Lumbar spine is: ----- L1-L4(G/cm2): 1.010 T Score Values are as follows: ----- L1: -1.2 ----- L2: -2.8 ----- L3: -1.6 ----- L4: -0.4 ----- L1-L4: -1.4 Z Score Values are as follows: ----- L1: -0.6 ----- L2: -2.2 ----- L3: -1.0 ----- L4: 0.1 ----- L1-L4: -0.8 Bone mineral density baseline Bone mineral density about the R hip (g/cm2): 0.950 Bone mineral density about the L hip (g/cm2): 0.886 T Score values are as follows: -----R Neck: -0.8 -----L Neck: -0.8 -----R Total: -0.5 -----L Total: -1.0 Z Score values are as follows: -----R Neck: 0.1 -----L Neck: 0.0 -----R Total: 0.0 -----L Total: -0.5 Bone mineral density baseline FRAX%s: The graph provided illustrates a 6.6% chance for a major osteoporotic fx and a 0.3% chance fo r the hips probability for fx in 10 years time. IMPRESSION: Osteopenia (T Score between -2.5 and -1). There is slightly increased risk of fracture and the patient may be considered for treatment. Re-Screen 2-5 years. NOTE: T-SCORE=SD OF THE YOUNG ADULT MEAN.
== END | disposition home or self-care (01) ==
LOC: RADMAMWWP 12:23
PROVIDERS: ATTEND Obstetrics & Gynecology
DX: Z12.31 Encounter for screening mammogram for malignant neoplasm of breast (principal); M81.0 Age-related osteoporosis without current pathological fracture; M85.88 Other specified disorders of bone density and structure, other site; N95.1 Menopausal and female climacteric states
CPT/HCPCS: 77063; 77067; 77080

== ENCOUNTER 2023-11-11 13:51 | Emergency (ER) | payer BC | END 2023-11-11 17:31 | disposition home or self-care (01) | LOC: EC 13:51 | DX: I49.3 Ventricular premature depolarization (principal) | CPT/HCPCS: 93005; 99285 ==